=== PATIENT | female | born 1945 | race Caucasian/White ===

== ENCOUNTER 2024-05-03 16:38 | Emergency (ER) | payer OTHER, SELFPAY ==
[2024-05-03 16:41] VITALS: BP 187/70
[2024-05-03 17:04] LABS: % Basophils 0.1 % (0-2); % Eosinophils 0.2 % (0-6); % Immature Granulocytes 0.3 % (0-0.5); % Lymphocytes 13.5 % (20.5-51.1); % Monocytes 9.2 % (1.7-9.3); % Neutrophils 76.7 % (42.2-75.2); Absolute Lymphocytes 1.2 10^3/uL (1.2-3.4); Absolute Monocytes 0.8 10^3/uL (0.1-0.6); Absolute Neutrophils 6.7 10^3/uL (1.4-6.5); Hematocrit 36.5 % (37.0-47.0); Hemoglobin 12.9 g/dL (12.0-16.0); Mean Corp Hgb Conc. 35.3 g/dL (33.0-37.0); Mean Corpuscular Hgb 31.5 pg (27.0-31.0); Mean Platelet Volume 10.2 fL (7.4-10.4); Nucleated Red Blood Cells % 0 %; Platelet Count 297 10^3/uL (130-400); Red Cell Dist. Width 12.7 % (11.5-14.5); White Blood Cell Count 8.8 10^3/uL (4.8-10.8)
[2024-05-03 17:15] LABS: ALT (SGPT) 46 U/L (0-35); AST (SGOT) 45 U/L (14-36); Albumin 4.3 g/dl (3.5-5.0); Alkaline Phosphatase 136 U/L (38-126); Blood Urea Nitrogen 13 mg/dl (7-17); Calcium 9.9 mg/dl (8.4-10.2); Carbon Dioxide 28 mmol/L (22-30); Chloride 98 mmol/L (98-107); Glucose 131 mg/dl (70-99); Potassium 4.3 mmol/L (3.5-5.1); Sodium 133 mmol/L (135-145); Total Bilirubin 0.7 mg/dl (0.2-1.3); Total Protein 7.1 g/dl (6.3-8.2); eGFR > 60.00
[2024-05-03 18:00] VITALS: BP 165/117
[2024-05-03 20:00] VITALS: BP 161/97
[2024-05-03] MEDS: DECADRON 10 MG PO (20:48)
[2024-05-03 21:37] VITALS: BP 156/80
--- NOTE | 2024-05-05 09:03 | ED.GENMED ---
History of Present Illness
General
Chief Complaint: Back Pain
Source: patient
Exam Limitations: none
Time Seen by Provider: 05/03/24 19:25
Nursing documentation reviewed up to this point in time: agreed with
History of Present Illness
History of Present Illness:
78 yo female w h/o HTN is here for right lower back pain radiating down right outer thigh R knee for two weeks. Saw PCP who referred her to pain specialist at [facility] who saw her 10 days ago and ordered MRI and prescribed Butalbital/Codeine/ASA as
well as Gabapentin 100 mg TID for pain. Pt just got thr rx filled today and hasn't yet taken any. Pt states just this a.m. her insurance company approved the MRI and she was hoping to get one here today.
She denies fever/chills. Denies abdominal, chest pain, states she has occasional stool incontinence but has been taking Senakot, Miralax, denies saddle anesthesia or weakness in legs. Has been ambulating well but with pain.
Past History
Past History
ED Past Medical History: HTN, Other (long QT), Other (OA) and Other (Migraines)
ED Past Surgical History: None
Social History
Tobacco: Non-smoker
Personal:
Living: with family
Employment: Employed
Review of Systems
Review of Systems
Allergies reviewed?: Yes
All Other Systems: ROS reviewed and negative except as documented in HPI and ROS
Constitutional: Denies fever or fatigue
Respiratory: Denies trouble breathing
Cardiac: Denies chest pain
ABD/GI: Denies abdominal pain, nausea, vomiting, diarrhea, bloody stools, black stools or anorexia
: Denies dysuria, frequency, incontinence, difficulty voiding or urgency
Musculoskeletal: Reports back pain (R lower back); Denies neck pain
Skin: Reports no symptoms
Neurological: Reports other (pain radiates down right thigh to knee); Denies weakness or numbness
Phy Exam
General Physical Exam
General Presentation: well appearing and no apparent distress
General age: appears stated age
General Skin: warm and dry
General Habitus: normal
General Mental: alert
General Hydration: appears well hydrated
Cardiovascular Exam
Cardiovascular Exam: regular rate/rhythm and no edema
Heart Sounds: normal
Pulmonary Exam
Pulmonary Exam: lungs clear
Gastrointestinal Exam
Gastrointestinal Exam: normal bowel sounds, non tender and soft
Rectal Exam: normal sphincter tone and soft stool
Neurological Exam
Neurological Exam: alert, normal reflexs and no sensory deficits
Musculoskeletal Exam
Musculoskeletal Exam: no edema, back tenderness (R lower senior backup administrator to palpation, no spinal bony tenderness. ) and neuro vasc intact
Skin Exam
Skin Exam: normal color, warm/dry and no rash
Psychiatric Exam
Psychiatric Exam: normal mood/affect
Course
Orders/Labs/Results
Orders:
Orders
05/03/24 16:52
CMP [Comprehensive Metabolic Panel] Urgent
Complete Blood Count/With Diff Urgent
05/03/24 20:43
Dexamethasone [Decadron] 10 mg .ROUTE .STK-MED ONE
05/03/24 20:46
Dexamethasone [Decadron] 10 mg PO NOW STA
Abnormal Lab Results
05/03/24
16:52
RBC 4.10 L 10^6/uL
(4.20-5.40)
Hct 36.5 L %
(37.0-47.0)
MCH 31.5 H pg
(27.0-31.0)
Absolute Neuts (auto) 6.7 H 10^3/uL
(1.4-6.5)
Absolute Monos (auto) 0.8 H 10^3/uL
(0.1-0.6)
Neutrophils % 76.7 H %
(42.2-75.2)
Lymphocytes % 13.5 L %
(20.5-51.1)
Sodium 133 L mmol/L
(135-145)
Glucose 131 H mg/dl
(70-99)
AST 45 H U/L
(14-36)
ALT 46 H U/L
(0-35)
Alkaline Phosphatase 136 H U/L
(38-126)
05/03/24 16:52
05/03/24 16:52
Vital Signs
Initial and Last Documented VS:
Initial Vital Signs
Temp Pulse Resp BP Pulse Ox
98.0 F 58 18 187/70 97
05/03/24 16:41 05/03/24 16:41 05/03/24 16:41 05/03/24 16:41 05/03/24 16:41
Last Documented Vital Signs
Temp Pulse Resp BP Pulse Ox
97.8 F 63 19 156/80 98
05/03/24 21:37 05/03/24 21:37 05/03/24 21:37 05/03/24 21:37 05/03/24 21:37
MDM/Problems Addressed
Differential Diagnosis Includes:
low back strain, sciatica, herniated disc, nerve root impingement
MDM/Problems Addressed:
78 yo female w h/o HTN is here for right lower back pain radiating down right outer thigh R knee for two weeks. Saw PCP who referred her to pain specialist at [facility] who saw her 10 days ago and ordered MRI and prescribed Butalbital/Codeine/ASA as
well as Gabapentin 100 mg TID for pain. Pt just got thr rx filled today and hasn't yet taken any. Pt states just this a.m. her insurance company approved the MRI and she was hoping to get one here today.
She denies fever/chills. Denies abdominal, chest pain, states she has occasional stool incontinence but has been taking Senakot, Miralax, denies saddle anesthesia or weakness in legs. Has been ambulating well but with pain.
Pt exam consistent with R low back pain with sciatica
No cauda equina
Rx for short regimen of Prednisone sent to her pharmacy.
She will make appt for MRI.
Take prescribed pain medication
Return instructions discussed.
Educated patient and her about what sciatica is. They are very comfortable with being discharged and were very appreciative of the information
At discharge, pt ambulated out with slight limp
*Critical Care Note
Total Time (30-74mins, 75-104mins- exclusive of procedures): Not Applicable
Patient Management
Social determinants of health affecting care: Strong social support
ED Attending Note
-
Portions of this chart may have been created with voice recognition software.� Occasional wrong word or��sound alike� substitutions may have occurred due to the inherent limitations of voice recognition software.
Discharge Plan
Departure
Patient Disposition: Home (Routine Discharge)
Date of Disposition: 05/03/24
Time of Disposition: 21:28
Patient with high blood pressure during this ER visit?: No
Condition: Good
Discharge Problem:
Acute low back pain with right-sided sciatica
Instructions: Low Back Pain (DC), Sciatica (DC)
Prescriptions:
New
prednisone 20 mg tablet
40 mg PO DAILY Qty: 8 0RF
No Action
melatonin 3 MG tablet
3 mg PO HSPRN PRN (Reason: insomnia)
nadolol [Corgard] 20 MG tablet
30 mg PO DAILY
rfawrsn-nvlgehvzgv-ZGJ-caff [Fiorinal-Codeine #3] 1 EACH capsule
0.5 ea PO PRN PRN (Reason: migraines)
pantoprazole 40 MG tablet,delayed release (DR/EC)
40 mg PO DAILY
niacinamide 500 MG tablet
250 mg PO DAILY
fluticasone propionate 1 SPRAY spray,suspension
1 spray intranasal DAILY
vitamin E 400 UNIT capsule
400 unit PO DAILY
calcium citrate malate-vit D3 1 TAB tablet
1 tab PO QID
zidzxcgshjt-hthzmbmkz-uoj C-Mn 1 CAP capsule
2 cap PO DAILY
Saccharomyces boulardii 250 MG capsule
250 mg PO BID
xcnijupc-vqp-RJ-lycopen-lutein [Centrum Silver] 1 EACH tablet
1 ea PO DAILY
co Q10-red yeast rice 1 EACH capsule
1 ea PO 1800
red yeast rice 600 MG tablet
600 mg PO NOON
guaifenesin [Mucus Relief ER] 600 MG tablet extended release 12hr
600 mg PO 1800
acetaminophen-codeine 1 TABLET tablet
0.5 tab PO .Q4-6HPRN
aspirin 325 MG tablet
0.5 tab PO DAILY
nadolol 20 MG tablet
20 mg PO HS
cephalexin 500 MG capsule
500 mg PO BID Qty: 14 0RF
acetaminophen-codeine 1 TABLET tablet
1 tab PO Q6HPRN PRN (Reason: pain) Qty: 15 0RF
Referrals:
Flavia Anthony, [Family Provider] -
Daryn Gayle MD [Active] - Next open appointment
Activity Restrictions/Additional Instructions:
As we discussed, you may make an appointment with our pain management Dr. Gayle
I sent a prescription to your pharmacy for Prednisone 40 mg daily for 4 days
It will take 2-3 days for the steroids to kick in.
If you develop a rash, stop the steroid
Interventions
Interventions:
*Risk Screen - Suicide Last Done: 05/03/24 18:27
*General Assessment Last Done: 05/03/24 16:41
*Neglect/Abuse Screening Last Done: 05/03/24 18:27
ED- Fall Risk Assessment Last Done: 05/03/24 18:27
*ED COVID-19 Vaccine History Last Done: 05/03/24 16:41
*Nursing Disposition Last Done: 05/03/24 21:39
ED-Musculoskeletal Assessment Last Done: 05/03/24 18:27
Discharge Date and Time
Discharge Date/Time: 05/03/24 21:40
Print Language: YORUBA
== END 2024-05-03 21:40 | disposition home or self-care (01) ==
LOC: EMR 16:38
PROVIDERS: Emergency Medicine; EMERGENCY PHYSICIAN Emergency Medicine; FAMILY PHYSICIAN Internal Medicine
DX: M54.41 Lumbago with sciatica, right side (principal); I10 Essential (primary) hypertension
CPT/HCPCS: 99283; 80053; 85025

== ENCOUNTER 2025-04-17 06:34 | Day surgery (SDC) | payer OTHER, SELFPAY | END 2025-04-17 16:32 | disposition home or self-care (01) | LOC: GI 06:34 | PROVIDERS: ATTENDING PHYSICIAN Internal Medicine; FAMILY PHYSICIAN Internal Medicine | DX: Z12.11 Encounter for screening for malignant neoplasm of colon (principal); K64.9 Unspecified hemorrhoids; R19.7 Diarrhea, unspecified; D12.3 Benign neoplasm of transverse colon; D12.0 Benign neoplasm of cecum | CPT/HCPCS: 45385; 45380; 88305 ==

== ENCOUNTER → 2025-05-10 13:41 | Outpatient (REF) | payer OTHER, SELFPAY | LOC: RCS 13:41 | PROVIDERS: ATTENDING PHYSICIAN Internal Medicine Cardiovascular Disease; FAMILY PHYSICIAN Internal Medicine | DX: I10 Essential (primary) hypertension (principal); I45.81 Long QT syndrome; R06.09 Other forms of dyspnea; I27.20 Pulmonary hypertension, unspecified | CPT/HCPCS: 93306 ==

== ENCOUNTER → 2025-05-22 13:32 | Outpatient (REF) | payer OTHER, SELFPAY | LOC: PET 13:32 | PROVIDERS: ATTENDING PHYSICIAN Internal Medicine Cardiovascular Disease | DX: I10 Essential (primary) hypertension (principal); I45.81 Long QT syndrome; R06.09 Other forms of dyspnea; I27.20 Pulmonary hypertension, unspecified | CPT/HCPCS: 78431; A9555; J2785 ==

== ENCOUNTER 2025-07-06 06:08 | Day surgery (SDC) | payer OTHER, SELFPAY ==
[2025-07-06 09:21] VITALS: BMI 19.7
[2025-07-06 09:31] VITALS: BP 135/79; BMI 19.7
[2025-07-06 14:38] VITALS: BP 151/64
[2025-07-06 14:45] VITALS: BP 151/72
[2025-07-06 15:00] VITALS: BP 164/72
== END 2025-07-06 15:40 | disposition home or self-care (01) ==
LOC: GI 06:08
PROVIDERS: ATTENDING PHYSICIAN Internal Medicine Gastroenterology
DX: D12.0 Benign neoplasm of cecum (principal); D12.4 Benign neoplasm of descending colon; K64.0 First degree hemorrhoids
CPT/HCPCS: 45390; 88305